=== PATIENT | male | born 1950 | race Asian ===

== ENCOUNTER 2016-11-29 15:28 | Emergency (ER) | payer OTHER ==
[~2016-11-29] VITALS: Ht 180.3 cm; Wt 71.7 kg
[2016-11-29 15:46] VITALS: BP 129/77
== END 2016-11-29 16:05 | disposition short-term general hospital (02) ==
LOC: ED 15:28
DX: I21.3 ST elevation (STEMI) myocardial infarction of unspecified site (principal); E78.00 Pure hypercholesterolemia, unspecified; Z79.899 Other long term (current) drug therapy
CPT/HCPCS: J1644